=== PATIENT | female | born 2005 | race Caucasian/White ===

== ENCOUNTER 2024-01-08 18:15 | Emergency (ER) | payer OTHER, SELFPAY ==
[2024-01-08 18:50] VITALS: BP 135/64; PULSE 65; RESP 14; TEMP 36.6; O2SAT 100
--- NOTE | 2024-01-08 19:10 | ED.GENADULT ---
HPI - General Adult General Chief complaint: Urogenital-Female Stated complaint: Urinary Problem Source: patient Mode of arrival: ambulatory Limitations: no limitations History of Present Illness HPI narrative: Patient presents for evaluation of suprapubic pain. Symptom onset this morning. She woke from sleep with her symptoms. She states pain is intermittent, although she cannot provide me with a frequency or duration of her symptoms. She describes the pain as ?pressure . She rates it as 4/10 in severity. Pain is alleviated after urinating. She reports urinary frequency without dysuria, hematuria or other urinary symptoms. She denies any vaginal bleeding or discharge. She has a history of regular menstruation and her next period is due to start in the next 4-5 days. She is sexually active with her boyfriend. He is not having any symptoms consistent with STI. She is adherent to OC. She reports some constipation. No nausea or vomiting. Related Data Home Medications Medication Instructions Recorded Confirmed norgestimate 0.25 mg-ethinyl 1 tablet PO DAILY 01/08/24 01/08/24 estradiol 35 mcg tablet (Sprintec (28)) Allergies Allergy/AdvReac Type Severity Reaction Status Date / Time No Known Allergies Allergy Verified 01/08/24 18:43 Review of Systems Review of Systems: CONSTITUTIONAL: Denies fever, chills, or sweats. EYES: Denies visual changes, redness, or discharge. ENT: Denies rhinorrhea, congestion, sore throat, or otalgia. CARDIOVASCULAR: Denies chest pain, palpitations, or edema. RESPIRATORY: Denies cough or dyspnea. GASTROINTESTINAL: Denies abdominal pain, nausea, vomiting, or diarrhea. GENITOURINARY: Reports suprapubic pressure and urinary frequency. Denies dysuria, hematuria, other urinary symptoms. Denies vaginal bleeding or discharge. SKIN: Denies rash or itching. MUSCULOSKELETAL: Denies back pain, joint pain, or myalgia. NEUROLOGIC: Denies headache, numbness, dizziness, or weakness. PSYCHIATRIC: Denies anxiety or depression. FORMERLY [facility] Past Medical History Medical History (Updated 01/08/24 @ 19:55 by Frank Rosario, SINCERE, MESHA) No pertinent past medical history Surgical History Surgical History No pertinent past surgical history Family History Family History (Updated 01/08/24 @ 19:17 by Frank Rosario, SINCERE, ) Mother Family history non-contributory Social History Social History Alcohol intake: current Alcohol use details: social Gender identity (if verbalized by the patient): Female Sexual Orientation (if Verbalized by the Patient): Straight or Heterosexual Spiritual care concerns: No Exam Narrative: GENERAL: Well-appearing, well-nourished, and in no acute distress. HEAD: Normocephalic, atraumatic. EYES: PERRLA and EOMI. ENT: Nares clear, no rhinorrhea or epistaxis. Mucous membranes moist. Oropharynx without tonsillar hypertrophy exudate or other lesions. Bilateral TMs pearly krishnamurthy nonbulging NECK: Supple. No adenopathy or masses. No carotid bruits or JVD CHEST: Clear to auscultation. No respiratory distress. No wheezes rales or rhonchi HEART: Regular rate and rhythm. No murmur heard. Normal peripheral pulses. ABDOMEN: Soft, nondistended, normal active bowel sounds. Suprapubic tenderness without rebound or guarding. GENITAL: No external genital lesions. No adnexal tenderness. No cervical motion tenderness. There is a small to moderate amount of mucus consistent white/yellow discharge in vaginal vault. Cervix is not friable EXTREMITIES: Normal range of motion. No edema. SKIN: Warm, dry, no rash. NEURO: No focal deficits. Alert and oriented x3. PSYCH: Normal mood and affect. Course Course Emergency Course: This is a 18-year-old female who presented for evaluation of suprapubic pain. No evidence of infection on urinalysis. Pr
[2024-01-09 20:11] LABS: Trichomonas Vag PCR NOT DETECTED (NOT DETECTE)
[2024-01-09 20:35] LABS: Chlamydia trachomatis NOT DETECTED (NOT DETECTE); Neisseria gonorrhoeae PCR NOT DETECTED (NOT DETECTE)
[2024-01-10 15:20] LABS: Bacterial Vaginosis NEGATIVE (NEGATIVE)
== END 2024-01-08 20:01 | disposition home or self-care (01) ==
PROVIDERS: Emergency Provider Nurse Practitioner
DX: R10.30 Lower abdominal pain, unspecified (principal); N89.8 Other specified noninflammatory disorders of vagina
CPT/HCPCS: 81003; 81025; 81513; 87491; 87591; 87661; 99213; G0463